=== PATIENT | male | born 1975 | race Caucasian/White ===

== ENCOUNTER → 2018-06-18 | Day surgery (SDC) | payer OTHER, MEDICAID ==
[~2018-06-18] MED LIST: ABILIFY15 MG PO; DESITIN57 GM TOP; LOMOTIL TABLET1 EACH PO; LOPERAMIDE 2 MG2 M1 PO; METAMUCIL1 EAC1 PO; MULTIVITAMINS1 EAC7 PO; SYNTHROID125 MC1 PO; VENLAFAXINE HC150 M1 PO
--- NOTE | ~2018-06-18 | PROC ---
[address] [address] PROCEDURE REPORT Name: KENYATTA ROSE FIORELLA Room: [facility] M.R.#: [id number] Admission: 06/18/18 Attend Phys: Caitie Jordan MD Discharge: Date of : 77 Report #: [id number] THIS REPORT FOR: //name// For GI report, please see the Provation report in Perceptive 7 content. By: [id number] Records Staff [facility] /SHAYAN
--- NOTE | 2018-06-19 15:06 | PATH ---
[address] [address] PATHOLOGY RPT PROCEDURE Name: DREW ROSE Room: [facility] M.R.#: [id number] Admission: 06/18/18 Date of : 77 Discharge: Report #: [id number] Path Case #: [id number] [facility] Accession Number: [id number] . 01 Material submitted: . RECTAL BIOSPIES . 01 Clinical history: . Anal fistula, diarrhea, IBD . 02 Diagnosis: Rectal biopsies: - Mild active ileitis with suggestion of chronic inflammation and benign squamous mucosa, negative for granulomas, viral inclusions, and dysplasia. See comment. P06/19/2018 . 02 Comment: Review of Dr. Jordan's procedure report dated 06/18/2018, reveals the patient to have had a total colectomy with an ileal pouch/anal anastomosis in which biopsies were taken from the rectum rim. There is a history of ulcerative colitis. . The biopsies reveal benign small intestinal type mucosa having overlapping features of colonic mucosa, a histologic finding described in ileal pouches and there is mild active inflammation with neutrophils noted in the lamina propria, without significant cryptitis or crypt abscesses seen. There is also a moderate increase of lymphoplasmacytic infiltrate throughout the lamina propria without definite crypt distortion. (ABRAHAM:pit 06/19/2018) . 02 Electronically signed: . Ras Yu MD, Pathologist NPI- [id number] . 01 Gross description: . Received in formalin labeled "Drew Rose, rectal biopsies," is a single segment of bedolla soft tissue measuring 0.5 cm in maximum dimension. The specimen is entirely submitted in cassette A1. After filtration of the specimen container, no additional tissue was recovered. (TSD; 06/18/2018) TOB/TOB . 02 Pathologist provided ICD-10: K52.9 . 02 CPT . [id number] [place] [address] PATHOLOGY RPT PROCEDURE Name: DREW ROSE Room: [facility]#: [id number] Admission: 06/18/18 Date of : 77 Discharge: Report #: [id number] Path Case #: [id number] Specimen Comment: A courtesy copy of this report has been sent to Specimen Comment: [phone], . Specimen Comment: Report sent to / DR FERRERA Performed at: 01 [facility] [address] [facility] [address], [place], [place] [id number] MD Christopher Bangura MD Phone: [phone] Performed at: 02 [facility] [address] [address], [place], [place] [id number] MD Ras Yu MD Phone: [phone]
== END | disposition home or self-care (01) ==
LOC: M.SUR 06:55
DX: K52.9 Noninfective gastroenteritis and colitis, unspecified (principal); E03.9 Hypothyroidism, unspecified; Z98.0 Intestinal bypass and anastomosis status; Z79.899 Other long term (current) drug therapy